=== PATIENT | female | born 1985 | race Caucasian/White ===

== ENCOUNTER 2020-09-03 12:40 | Outpatient (REF) | payer BC, SELFPAY ==
[2020-09-04 21:22] LABS: Follicle Stimulating Hormone 8.9 mIU/mL
[2020-09-12 00:18] LABS: Estradiol Free 0.04 pg/mL; Estradiol, Ultrasensitive 3 pg/mL
== END 2020-09-03 12:41 | disposition home or self-care (01) ==
LOC: HO.HMGCLDS 12:40
PROVIDERS: Visit Provider Obstetrics & Gynecology
DX: N97.9 Female infertility, unspecified (principal)
CPT/HCPCS: 82670; 83001